=== PATIENT | male | born 1960 | race Caucasian/White ===

== ENCOUNTER 2019-01-09 16:12 | Inpatient (IN) | payer OTHER ==
[~2019-01-09] VITALS: Ht 177.8 cm; Wt 78.0 kg
[2019-01-09 16:41] VITALS: BP_SYST 112
[2019-01-09 17:38] LABS: WHITE BLOOD COUNT (AUTO) 6.1 K/uL (4.8-10.8)
[2019-01-09 17:43] LABS: HEMATOCRIT 34.8 % (36-54); HEMOGLOBIN 12.1 g/dL (14.0-18.0); MEAN CORPUSCULAR HEMOGLOBIN 34 pg (27-31); MEAN CORPUSCULAR HGB CONC 35 % (32-36); MEAN CORPUSCULAR VOLUME 98 fL (79.0-98.0); PLATELET COUNT (AUTO) 152 K/uL (130-430); RED BLOOD CELL COUNT(AUTO) 3.57 MIL/uL (4.2-6.2); RED CELL DISTRIBUTION WIDTH 15.7 % (9.0-15.0)
[2019-01-09 17:45] LABS: CALCIUM 7.8 mg/dL (8.4-11.0); CREATININE 1.29 mg/dL (0.55-1.30)
[2019-01-09 17:48] LABS: INR 1.1 (0.80-1.20); PROTHROMBIN TIME 11.3 SECS (9.5-12.5)
[2019-01-09 17:51] LABS: ALBUMIN 2.1 g/dL (3.4-4.8); TOTAL BILIRUBIN 14.4 mg/dL (0.0-1.0)
[2019-01-09 17:55] LABS: BAND % (MANUAL) 0 % (0-6); BASOPHILS % (MANUAL) 0 % (0-2); EOSINOPHILS % (MANUAL) 0 % (0-7); LYMPHOCYTES % (MANUAL) 12 % (20-46); MONOCYTES % (MANUAL) 6 % (0-11)
[2019-01-09 17:58] LABS: POTASSIUM 2.9 mmol/L (3.5-5.1)
[2019-01-09] MEDS ORDERED: POTASSIUM CHLORIDE 20 MEQ TAB.PRT.SR PO ONE (18:15)
[2019-01-09] MEDS ORDERED: ONDANSETRON HCL 4 MG/2 ML VIAL IVP ONE (18:15)
[2019-01-09 18:40] LABS: BILIRUBIN,URINE 3+ (NEGATIVE); BLOOD, URINE NEGATIVE (NEGATIVE); CLARITY/URINE SLIGHTLY CLOUDY (CLEAR); GLUCOSE,URINE TRACE (NEGATIVE); KETONES,URINE 1+ (NEGATIVE); LEUKOCYTE ESTERASE ,URINE TRACE (NEGATIVE); NITRITE, URINE POSITIVE (NEGATIVE); PH,URINE 6.5 (5.0-8.0); PROTEIN URINE 1+ (NEGATIVE)
[2019-01-09 18:41] LABS: COLOR,URINE BROWN (YELLOW)
[2019-01-09] MEDS ORDERED: FAMOTIDINE 20 MG TABLET PO ONE ×2 (18:45→19:15)
[2019-01-09] MEDS ORDERED: FOLIC ACID 1 MG, THIAMINE HCL 100 MG, MAGNESIUM SULFATE 1 GM, MVI 10 ML in NACL 0.9% 1,... IV ONE (18:45)
[2019-01-09] MEDS ORDERED: PREDNISONE 20 MG TABLET PO ONE ×2 (18:45→19:15)
[2019-01-09 19:04] LABS: BACTERIA,URINE None Seen /HPF (None Seen); RBC,URINE 0-3 /HPF (0-3); WBC,URINE 0-3 /HPF (0-3)
[2019-01-09 19:07] LABS: HYALINE CASTS, URINE 0-10 /LPF (None Seen)
[2019-01-09] MEDS ORDERED: DOXYCYCLINE HYCLATE 100 MG in D5W 100 ML IV ONE (19:15)
[2019-01-09 19:26] VITALS: BP_SYST 136
[2019-01-09] MEDS ORDERED: THIAMINE HCL 100 MG/ML VIAL ONE (20:35)
[2019-01-09] MEDS ORDERED: MVI 10 ML VIAL IV ONE (20:35)
[2019-01-09] MEDS ORDERED: MAGNESIUM SULFATE 1 GM/2 ML VIAL ONE (20:35)
[2019-01-09] MEDS ORDERED: FOLIC ACID 5 MG/ML VIAL IV ONE (20:35)
[2019-01-09] MEDS ORDERED: DOXYCYCLINE HYCLATE 100 MG VIAL IV ONE (20:39)
[2019-01-09] MEDS: PENTOXIFYLLINE 400 MG TABLET.SA (TRENtal) PO SCH (21:55)
[2019-01-09] MEDS: chlordiazePOXIDE HCL 25 MG CAPSULE PO SCH (21:55)
[2019-01-09] MEDS: cefTRIAXone 1 GM IVPB PREMIX 50 ML IV SCH (22:19)
[2019-01-09] MEDS ORDERED: cefTRIAXone 1 GM IVPB PREMIX 50 ML IV ONE (22:25)
[2019-01-10 00:47] VITALS: BP_SYST 130
[2019-01-10] MEDS: LORazepam 2 MG/ML VIAL IVP PRN ×4 (03:55→21:40)
[2019-01-10 06:21] LABS: INR 1.1 (0.80-1.20); PROTHROMBIN TIME 10.9 SECS (9.5-12.5)
[2019-01-10 06:31] LABS: CALCIUM 7.5 mg/dL (8.4-11.0); CREATININE 0.81 mg/dL (0.55-1.30); POTASSIUM 3.5 mmol/L (3.5-5.1); TOTAL BILIRUBIN 13.7 mg/dL (0.0-1.0)
[2019-01-10 06:34] LABS: HEMATOCRIT 32.9 % (36-54); HEMOGLOBIN 11.3 g/dL (14.0-18.0); MEAN CORPUSCULAR HEMOGLOBIN 33 pg (27-31); MEAN CORPUSCULAR HGB CONC 34 % (32-36); MEAN CORPUSCULAR VOLUME 97 fL (79.0-98.0); PLATELET COUNT (AUTO) 148 K/uL (130-430); RED BLOOD CELL COUNT(AUTO) 3.39 MIL/uL (4.2-6.2); WHITE BLOOD COUNT (AUTO) 3.2 K/uL (4.8-10.8)
[2019-01-10 08:00] VITALS: BP_SYST 138
[2019-01-10] MEDS: PREDNISONE 20 MG TABLET PO SCH ×2 (08:13→11:50)
[2019-01-10] MEDS: FAMOTIDINE 20 MG TABLET PO SCH ×2 (08:13→21:09)
[2019-01-10] MEDS: CHOLECALCIFEROL (VITAMIN D3) 2,000 UNIT TABLET PO SCH (08:13)
[2019-01-10] MEDS: chlordiazePOXIDE HCL 25 MG CAPSULE PO SCH ×3 (08:13→21:09)
[2019-01-10] MEDS: PENTOXIFYLLINE 400 MG TABLET.SA (TRENtal) PO SCH ×2 (08:13→11:50)
[2019-01-10] MEDS ORDERED: METOCLOPRAMIDE HCL 10 MG/2 ML VIAL IVP PRN (08:45)
[2019-01-10] MEDS ORDERED: THIAMINE HCL 100 MG TABLET PO SCH (09:00)
[2019-01-10] MEDS ORDERED: MULTIVITS,CA,MINERALS/IRON/FA 1 TABLET PO SCH (09:00)
[2019-01-10] MEDS ORDERED: NEPHROVITE, (FOLIC ACID/VITAMIN B COMP W-C 1 TAB) PO SCH (09:00)
[2019-01-10 09:10] LABS: BASOPHILS % (MANUAL) 0 % (0-2); EOSINOPHILS % (MANUAL) 0 % (0-7); LYMPHOCYTES % (MANUAL) 6 % (20-46); MONOCYTES % (MANUAL) 9 % (0-11)
[2019-01-10 12:26] VITALS: BP_SYST 106
[2019-01-10] MEDS ORDERED: COMMUNICATION ORDER XX ONE (16:30)
[2019-01-10 16:54] VITALS: BP_SYST 138
[2019-01-10] MEDS ORDERED: TEMAZEPAM 15 MG CAPSULE PO PRN (17:15)
[2019-01-10] MEDS ORDERED: METOPROLOL TARTRATE 25 MG TABLET PO ONE (17:15)
[2019-01-10 20:00] VITALS: BP_SYST 142
[2019-01-10] MEDS: TEMAZEPAM 15 MG CAPSULE PO SCH (21:00)
[2019-01-10] MEDS ORDERED: HALOPERIDOL LACTATE 5 MG/ML VIAL IM SCH (21:00)
[2019-01-10] MEDS: METOPROLOL TARTRATE 25 MG TABLET PO SCH (21:11)
[2019-01-10] MEDS: cefTRIAXone 1 GM IVPB PREMIX 50 ML IV SCH (21:54)
[2019-01-10] MEDS ORDERED: QUEtiapine FUMARATE 100 MG TABLET PO ONE (22:45)
[2019-01-10] MEDS ORDERED: LORazepam 2 MG/ML VIAL IVP ONE (22:45)
[2019-01-11] VITALS (13 sets, daily range): BP systolic 108–156
[2019-01-11 07:55] LABS: HEMATOCRIT 30.8 % (36-54); HEMOGLOBIN 10.6 g/dL (14.0-18.0); MEAN CORPUSCULAR HEMOGLOBIN 34 pg (27-31); MEAN CORPUSCULAR HGB CONC 35 % (32-36); MEAN CORPUSCULAR VOLUME 97 fL (79.0-98.0); PLATELET COUNT (AUTO) 138 K/uL (130-430); RED BLOOD CELL COUNT(AUTO) 3.17 MIL/uL (4.2-6.2); RED CELL DISTRIBUTION WIDTH 16.5 % (9.0-15.0); WHITE BLOOD COUNT (AUTO) 6.1 K/uL (4.8-10.8)
[2019-01-11] MEDS: LORazepam 2 MG/ML VIAL IVP PRN ×3 (08:16→23:11)
[2019-01-11] MEDS: METOPROLOL TARTRATE 25 MG TABLET PO SCH ×3 (08:19→20:36)
[2019-01-11] MEDS: chlordiazePOXIDE HCL 25 MG CAPSULE PO SCH ×4 (08:19→20:35)
[2019-01-11] MEDS: FAMOTIDINE 20 MG TABLET PO SCH ×3 (08:20→20:35)
[2019-01-11] MEDS: CHOLECALCIFEROL (VITAMIN D3) 2,000 UNIT TABLET PO SCH ×2 (08:20→09:10)
[2019-01-11 08:23] LABS: CALCIUM 8.1 mg/dL (8.4-11.0); CREATININE 0.9 mg/dL (0.55-1.30); POTASSIUM 3.3 mmol/L (3.5-5.1)
[2019-01-11 08:28] LABS: TOTAL BILIRUBIN 15.2 mg/dL (0.0-1.0)
[2019-01-11] MEDS ORDERED: POTASSIUM CHLORIDE 20 MEQ TAB.PRT.SR PO ONE ×2 (08:45→12:45)
[2019-01-11 08:47] LABS: BASOPHILS % (MANUAL) 0 % (0-2); EOSINOPHILS % (MANUAL) 1 % (0-7); LYMPHOCYTES % (MANUAL) 21 % (20-46); MONOCYTES % (MANUAL) 6 % (0-11)
[2019-01-11 09:27] LABS: HEPATITIS A AB, IgM Negative (Negative); HEPATITIS B CORE AB, IgM Negative (Negative); HEPATITIS B SURFACE AG Negative (Negative)
[2019-01-11] MEDS: THIAMINE HCL 100 MG, MAGNESIUM SULFATE 1 GM in NS 100 ML IV SCH (11:05)
[2019-01-11] MEDS: FOLIC ACID 1 MG, MVI 10 ML in NACL 0.9% 1,000 ML IV SCH (11:06)
[2019-01-11] MEDS ORDERED: FOLIC ACID 1 MG, THIAMINE HCL 100 MG, MAGNESIUM SULFATE 1 GM, MVI 10 ML in NACL 0.9% 1,... IV SCH (15:00)
[2019-01-11] MEDS ORDERED: PREDNISONE 20 MG TABLET PO ONE (15:30)
[2019-01-11] MEDS ORDERED: POTASSIUM CHLORIDE 20 MEQ/PKT PACKET PO ONE (16:00)
[2019-01-11] MEDS ORDERED: PENTOXIFYLLINE 400 MG TABLET.SA (TRENtal) PO SCH (18:00)
[2019-01-11] MEDS: QUEtiapine FUMARATE 100 MG TABLET PO SCH (18:23)
[2019-01-11] MEDS: TEMAZEPAM 15 MG CAPSULE PO SCH (20:35)
[2019-01-11] MEDS ORDERED: cefTRIAXone 1 GM IVPB PREMIX 50 ML IV ONE (22:13)
[2019-01-11] MEDS: cefTRIAXone 1 GM IVPB PREMIX 50 ML IV SCH (22:17)
[2019-01-12] VITALS (26 sets, daily range): BP systolic 29–148
[2019-01-12] MEDS: LORazepam 2 MG/ML VIAL IVP PRN (03:29)
[2019-01-12 06:13] LABS: HEMATOCRIT 31.9 % (36-54); HEMOGLOBIN 11.1 g/dL (14.0-18.0); MEAN CORPUSCULAR HEMOGLOBIN 34 pg (27-31); MEAN CORPUSCULAR HGB CONC 35 % (32-36); MEAN CORPUSCULAR VOLUME 98 fL (79.0-98.0); PLATELET COUNT (AUTO) 151 K/uL (130-430); RED BLOOD CELL COUNT(AUTO) 3.25 MIL/uL (4.2-6.2); RED CELL DISTRIBUTION WIDTH 16.4 % (9.0-15.0); WHITE BLOOD COUNT (AUTO) 7.8 K/uL (4.8-10.8)
[2019-01-12 07:12] LABS: ALBUMIN 1.9 g/dL (3.4-4.8); CALCIUM 7.8 mg/dL (8.4-11.0); CREATININE 0.8 mg/dL (0.55-1.30); PHOSPHORUS 3.3 mg/dL (2.7-4.5); POTASSIUM 4.4 mmol/L (3.5-5.1)
[2019-01-12 07:21] LABS: TOTAL BILIRUBIN 17.4 mg/dL (0.0-1.0)
[2019-01-12] MEDS: NACL 0.9% 1,000 ML IV SCH (07:45)
[2019-01-12] MEDS ORDERED: PREDNISONE 20 MG TABLET PO SCH (09:00)
[2019-01-12] MEDS: POTASSIUM CHLORIDE 20 MEQ/PKT PACKET PO SCH (09:07)
[2019-01-12] MEDS: METOPROLOL TARTRATE 25 MG TABLET PO SCH ×2 (09:09→21:39)
[2019-01-12] MEDS: chlordiazePOXIDE HCL 25 MG CAPSULE PO SCH ×4 (09:09→21:38)
[2019-01-12] MEDS: FAMOTIDINE 20 MG TABLET PO SCH ×2 (09:10→21:38)
[2019-01-12] MEDS: CHOLECALCIFEROL (VITAMIN D3) 2,000 UNIT TABLET PO SCH (09:16)
[2019-01-12 10:31] LABS: BASOPHILS % (MANUAL) 0 % (0-2); LYMPHOCYTES % (MANUAL) 7 % (20-46); MONOCYTES % (MANUAL) 8 % (0-11)
[2019-01-12 10:33] LABS: EOSINOPHILS % (MANUAL) 1 % (0-7)
[2019-01-12] MEDS: FOLIC ACID 1 MG, MVI 10 ML in NACL 0.9% 1,000 ML IV SCH (11:47)
[2019-01-12] MEDS: THIAMINE HCL 100 MG, MAGNESIUM SULFATE 1 GM in NS 100 ML IV SCH (11:47)
[2019-01-12] MEDS: QUEtiapine FUMARATE 100 MG TABLET PO SCH (17:11)
[2019-01-12] MEDS: TEMAZEPAM 15 MG CAPSULE PO SCH (21:38)
[2019-01-12] MEDS: cefTRIAXone 1 GM IVPB PREMIX 50 ML IV SCH (21:40)
[2019-01-13] VITALS (24 sets, daily range): BP systolic 99–149
[2019-01-13] MEDS: NACL 0.9% 1,000 ML IV SCH ×3 (02:59→22:32)
[2019-01-13] MEDS: LORazepam 2 MG/ML VIAL IVP PRN ×4 (03:18→19:18)
[2019-01-13 05:25] LABS: BASOPHILS # (AUTO) 0.1 K/uL (0.0-0.2); BASOPHILS % (AUTO) 1.1 % (0.0-2.0); EOSINOPHILS % (AUTO) 0.2 % (0.0-4.0); HEMATOCRIT 30.8 % (36-54); HEMOGLOBIN 10.6 g/dL (14.0-18.0); LYMPHOCYTES # (AUTO) 2.5 K/uL (1.0-5.5); LYMPHOCYTES % (AUTO) 40.6 % (20.5-51.5); MEAN CORPUSCULAR HEMOGLOBIN 34 pg (27-31); MEAN CORPUSCULAR HGB CONC 35 % (32-36); MEAN CORPUSCULAR VOLUME 99 fL (79.0-98.0); MONOCYTES # (AUTO) 0.9 K/uL (0.0-1.0); MONOCYTES % (AUTO) 13.6 % (1.7-9.3); NEUTROPHILS # (AUTO) 2.8 K/uL (1.8-7.7); NEUTROPHILS % (AUTO) 44.5 % (40.0-70.0); PLATELET COUNT (AUTO) 149 K/uL (130-430); RED BLOOD CELL COUNT(AUTO) 3.11 MIL/uL (4.2-6.2); RED CELL DISTRIBUTION WIDTH 17.2 % (9.0-15.0); WHITE BLOOD COUNT (AUTO) 6.3 K/uL (4.8-10.8)
[2019-01-13 05:40] LABS: PROTHROMBIN TIME 10.1 SECS (9.5-12.5)
[2019-01-13 05:43] LABS: ALBUMIN 1.8 g/dL (3.4-4.8); BILIRUBIN,DIRECT 14.2 mg/dL (0.0-0.3); CALCIUM 7.9 mg/dL (8.4-11.0); CREATININE 0.86 mg/dL (0.55-1.30); PHOSPHORUS 2.4 mg/dL (2.7-4.5); POTASSIUM 4.3 mmol/L (3.5-5.1)
[2019-01-13 05:44] LABS: TOTAL BILIRUBIN 16.1 mg/dL (0.0-1.0)
[2019-01-13] MEDS: chlordiazePOXIDE HCL 25 MG CAPSULE PO SCH ×4 (08:18→20:49)
[2019-01-13] MEDS: METOPROLOL TARTRATE 25 MG TABLET PO SCH ×2 (08:18→20:49)
[2019-01-13] MEDS: CHOLECALCIFEROL (VITAMIN D3) 2,000 UNIT TABLET PO SCH (08:18)
[2019-01-13] MEDS: POTASSIUM CHLORIDE 20 MEQ/PKT PACKET PO SCH (08:18)
[2019-01-13] MEDS: FAMOTIDINE 20 MG TABLET PO SCH ×2 (08:18→20:49)
[2019-01-13] MEDS ORDERED: LACTULOSE 20 GM/30 ML UDC PO SCH (09:00)
[2019-01-13] MEDS ORDERED: HALOPERIDOL LACTATE 5 MG/ML VIAL IM ONE (09:00)
[2019-01-13] MEDS: THIAMINE HCL 100 MG, MAGNESIUM SULFATE 1 GM in NS 100 ML IV SCH (11:03)
[2019-01-13] MEDS: FOLIC ACID 1 MG, MVI 10 ML in NACL 0.9% 1,000 ML IV SCH (12:21)
[2019-01-13] MEDS ORDERED: NA PHOS 15 MM in NS 250 ML IV ONE (12:45)
[2019-01-13] MEDS: HALOPERIDOL 1 MG TABLET (HALDOL) PO SCH ×2 (14:35→20:48)
[2019-01-13] MEDS: cefTRIAXone 1 GM IVPB PREMIX 50 ML IV SCH (20:47)
[2019-01-13] MEDS: TEMAZEPAM 15 MG CAPSULE PO SCH (20:48)
[2019-01-13] MEDS: HALOPERIDOL LACTATE 5 MG/ML VIAL IM PRN (23:11)
[2019-01-14] VITALS (11 sets, daily range): BP systolic 100–143
[2019-01-14 05:44] LABS: BASOPHILS # (AUTO) 0.1 K/uL (0.0-0.2); BASOPHILS % (AUTO) 1.5 % (0.0-2.0); EOSINOPHILS # (AUTO) 0.1 K/uL (0.0-0.4); EOSINOPHILS % (AUTO) 1.5 % (0.0-4.0); HEMATOCRIT 31.2 % (36-54); HEMOGLOBIN 10.6 g/dL (14.0-18.0); LYMPHOCYTES # (AUTO) 2.5 K/uL (1.0-5.5); LYMPHOCYTES % (AUTO) 37.2 % (20.5-51.5); MEAN CORPUSCULAR HEMOGLOBIN 34 pg (27-31); MEAN CORPUSCULAR HGB CONC 34 % (32-36); MEAN CORPUSCULAR VOLUME 100 fL (79.0-98.0); MONOCYTES % (AUTO) 14.5 % (1.7-9.3); NEUTROPHILS # (AUTO) 3.1 K/uL (1.8-7.7); NEUTROPHILS % (AUTO) 45.3 % (40.0-70.0); PLATELET COUNT (AUTO) 154 K/uL (130-430); RED BLOOD CELL COUNT(AUTO) 3.12 MIL/uL (4.2-6.2); RED CELL DISTRIBUTION WIDTH 17.6 % (9.0-15.0); WHITE BLOOD COUNT (AUTO) 6.7 K/uL (4.8-10.8)
[2019-01-14] MEDS: NACL 0.9% 1,000 ML IV SCH (06:03)
[2019-01-14] MEDS: LORazepam 2 MG/ML VIAL IVP PRN (06:04)
[2019-01-14 06:09] LABS: ALBUMIN 1.6 g/dL (3.4-4.8); CALCIUM 8.1 mg/dL (8.4-11.0); CREATININE 0.86 mg/dL (0.55-1.30); PHOSPHORUS 4.1 mg/dL (2.7-4.5); POTASSIUM 4.1 mmol/L (3.5-5.1)
[2019-01-14 06:19] LABS: TOTAL IRON BIND. CAPACITY 114 ug/dL (250-450)
[2019-01-14 06:28] LABS: TOTAL BILIRUBIN 15.5 mg/dL (0.0-1.0)
[2019-01-14] MEDS: POTASSIUM CHLORIDE 20 MEQ/PKT PACKET PO SCH (08:45)
[2019-01-14] MEDS: HALOPERIDOL 1 MG TABLET (HALDOL) PO SCH ×3 (08:46→21:35)
[2019-01-14] MEDS: CHOLECALCIFEROL (VITAMIN D3) 2,000 UNIT TABLET PO SCH (08:46)
[2019-01-14] MEDS: FAMOTIDINE 20 MG TABLET PO SCH ×2 (08:46→21:34)
[2019-01-14] MEDS: chlordiazePOXIDE HCL 25 MG CAPSULE PO SCH ×4 (08:46→21:35)
[2019-01-14] MEDS: METOPROLOL TARTRATE 25 MG TABLET PO SCH ×2 (08:47→21:34)
[2019-01-14] MEDS: THIAMINE HCL 100 MG, MAGNESIUM SULFATE 1 GM in NS 100 ML IV SCH (12:19)
[2019-01-14] MEDS: FOLIC ACID 1 MG, MVI 10 ML in NACL 0.9% 1,000 ML IV SCH (12:23)
[2019-01-14] MEDS: TEMAZEPAM 15 MG CAPSULE PO SCH (21:33)
[2019-01-14] MEDS: cefTRIAXone 1 GM IVPB PREMIX 50 ML IV SCH (23:51)
[2019-01-15] VITALS: BP_SYST 137
[2019-01-15] MEDS: NACL 0.9% 1,000 ML IV SCH ×4 (02:21→22:21)
[2019-01-15 08:18] VITALS: BP_SYST 134
[2019-01-15] MEDS: HALOPERIDOL 1 MG TABLET (HALDOL) PO SCH ×3 (08:37→20:47)
[2019-01-15] MEDS: METOPROLOL TARTRATE 25 MG TABLET PO SCH (08:39)
[2019-01-15] MEDS: POTASSIUM CHLORIDE 20 MEQ/PKT PACKET PO SCH (08:40)
[2019-01-15] MEDS: FAMOTIDINE 20 MG TABLET PO SCH ×2 (08:40→20:48)
[2019-01-15] MEDS: chlordiazePOXIDE HCL 25 MG CAPSULE PO SCH ×4 (08:40→20:48)
[2019-01-15] MEDS: CHOLECALCIFEROL (VITAMIN D3) 2,000 UNIT TABLET PO SCH (08:40)
[2019-01-15 09:02] LABS: HEMATOCRIT 32.6 % (36-54); HEMOGLOBIN 11.1 g/dL (14.0-18.0); MEAN CORPUSCULAR HEMOGLOBIN 34 pg (27-31); MEAN CORPUSCULAR HGB CONC 34 % (32-36); MEAN CORPUSCULAR VOLUME 101 fL (79.0-98.0); PLATELET COUNT (AUTO) 170 K/uL (130-430); RED BLOOD CELL COUNT(AUTO) 3.24 MIL/uL (4.2-6.2); RED CELL DISTRIBUTION WIDTH 17.5 % (9.0-15.0); WHITE BLOOD COUNT (AUTO) 6.3 K/uL (4.8-10.8)
[2019-01-15 09:30] LABS: ALBUMIN 1.8 g/dL (3.4-4.8); CALCIUM 8.1 mg/dL (8.4-11.0); CREATININE 0.7 mg/dL (0.55-1.30); POTASSIUM 3.8 mmol/L (3.5-5.1); TOTAL BILIRUBIN 13.7 mg/dL (0.0-1.0)
[2019-01-15 10:17] LABS: BASOPHILS % (MANUAL) 0 % (0-2); EOSINOPHILS % (MANUAL) 0 % (0-7); LYMPHOCYTES % (MANUAL) 13 % (20-46); MONOCYTES % (MANUAL) 8 % (0-11)
[2019-01-15] MEDS: THIAMINE HCL 100 MG, MAGNESIUM SULFATE 1 GM in NS 100 ML IV SCH (11:45)
[2019-01-15] MEDS: FOLIC ACID 1 MG, MVI 10 ML in NACL 0.9% 1,000 ML IV SCH (11:47)
[2019-01-15 13:16] VITALS: BP_SYST 132
[2019-01-15 17:35] VITALS: BP_SYST 112
[2019-01-15 19:00] VITALS: BP_SYST 130
[2019-01-15 20:00] VITALS: BP_SYST 130
[2019-01-15] MEDS: TEMAZEPAM 15 MG CAPSULE PO SCH (20:48)
[2019-01-15] MEDS: LORazepam 2 MG/ML VIAL IVP PRN (21:38)
[2019-01-16] VITALS (7 sets, daily range): BP systolic 111–157
[2019-01-16 05:50] LABS: HEMATOCRIT 28.9 % (36-54); HEMOGLOBIN 9.8 g/dL (14.0-18.0); MEAN CORPUSCULAR HEMOGLOBIN 34 pg (27-31); MEAN CORPUSCULAR HGB CONC 34 % (32-36); MEAN CORPUSCULAR VOLUME 101 fL (79.0-98.0); PLATELET COUNT (AUTO) 169 K/uL (130-430); RED BLOOD CELL COUNT(AUTO) 2.85 MIL/uL (4.2-6.2); RED CELL DISTRIBUTION WIDTH 18.1 % (9.0-15.0); WHITE BLOOD COUNT (AUTO) 6.4 K/uL (4.8-10.8)
[2019-01-16 07:18] LABS: ALBUMIN 1.7 g/dL (3.4-4.8); CALCIUM 8.3 mg/dL (8.4-11.0); CREATININE 0.74 mg/dL (0.55-1.30); POTASSIUM 3.8 mmol/L (3.5-5.1); TOTAL BILIRUBIN 13.2 mg/dL (0.0-1.0)
[2019-01-16 08:29] LABS: BASOPHILS % (MANUAL) 0 % (0-2); EOSINOPHILS % (MANUAL) 2 % (0-7); LYMPHOCYTES % (MANUAL) 17 % (20-46); MONOCYTES % (MANUAL) 7 % (0-11)
[2019-01-16] MEDS: POTASSIUM CHLORIDE 20 MEQ/PKT PACKET PO SCH (09:01)
[2019-01-16] MEDS: FAMOTIDINE 20 MG TABLET PO SCH ×2 (09:01→21:01)
[2019-01-16] MEDS: CHOLECALCIFEROL (VITAMIN D3) 2,000 UNIT TABLET PO SCH (09:01)
[2019-01-16] MEDS: chlordiazePOXIDE HCL 25 MG CAPSULE PO SCH ×4 (09:01→21:01)
[2019-01-16] MEDS: HALOPERIDOL 1 MG TABLET (HALDOL) PO SCH (09:01)
[2019-01-16] MEDS: THIAMINE HCL 100 MG, MAGNESIUM SULFATE 1 GM in NS 100 ML IV SCH (11:33)
[2019-01-16] MEDS: NACL 0.9% 1,000 ML IV SCH (11:34)
[2019-01-16] MEDS: FOLIC ACID 1 MG, MVI 10 ML in NACL 0.9% 1,000 ML IV SCH (11:38)
[2019-01-16] MEDS ORDERED: BISACODYL 5 MG TABLET.DR (DULCOLAX) PO PRN (12:30)
[2019-01-16] MEDS ORDERED: BISACODYL 5 MG TABLET.DR (DULCOLAX) PO ONE (12:30)
[2019-01-16] MEDS ORDERED: MILK OF MAGNESIA 30 ML UDC PO ONE (12:30)
[2019-01-16] MEDS: HALOPERIDOL 5 MG TABLET (HALDOL) PO SCH ×2 (14:30→21:01)
[2019-01-16] MEDS: AMPICILLIN SODIUM/SULBACTAM NA 3 GM in NS 100 ML IV SCH (18:30)
[2019-01-16] MEDS ORDERED: AMPICILLIN SODIUM/SULBACTAM NA 3 GM VIAL ONE (18:38)
[2019-01-16] MEDS: TEMAZEPAM 15 MG CAPSULE PO SCH (21:02)
[2019-01-17] MEDS ORDERED: AMPICILLIN SODIUM/SULBACTAM NA 3 GM VIAL ONE (00:02)
[2019-01-17] MEDS: AMPICILLIN SODIUM/SULBACTAM NA 3 GM in NS 100 ML IV SCH ×4 (00:13→18:01)
[2019-01-17 00:38] VITALS: BP_SYST 134
[2019-01-17] MEDS: LORazepam 2 MG/ML VIAL IVP PRN (01:18)
[2019-01-17 06:51] LABS: HEMATOCRIT 26.3 % (36-54); HEMOGLOBIN 9.3 g/dL (14.0-18.0); MEAN CORPUSCULAR HEMOGLOBIN 36 pg (27-31); MEAN CORPUSCULAR HGB CONC 35 % (32-36); MEAN CORPUSCULAR VOLUME 101 fL (79.0-98.0); PLATELET COUNT (AUTO) 181 K/uL (130-430); RED BLOOD CELL COUNT(AUTO) 2.59 MIL/uL (4.2-6.2); RED CELL DISTRIBUTION WIDTH 18.7 % (9.0-15.0); WHITE BLOOD COUNT (AUTO) 9.7 K/uL (4.8-10.8)
[2019-01-17 07:05] LABS: ALBUMIN 1.7 g/dL (3.4-4.8); CALCIUM 7.5 mg/dL (8.4-11.0); CREATININE 0.77 mg/dL (0.55-1.30); POTASSIUM 3.4 mmol/L (3.5-5.1); TOTAL BILIRUBIN 12.1 mg/dL (0.0-1.0)
[2019-01-17 07:40] LABS: BAND % (MANUAL) 4 % (0-6); BASOPHILS % (MANUAL) 0 % (0-2); EOSINOPHILS % (MANUAL) 0 % (0-7); LYMPHOCYTES % (MANUAL) 11 % (20-46); MONOCYTES % (MANUAL) 8 % (0-11)
[2019-01-17 08:00] VITALS: BP_SYST 131
[2019-01-17] MEDS ORDERED: POTASSIUM CHLORIDE 20 MEQ/PKT PACKET PO ONE (08:30)
[2019-01-17] MEDS: FAMOTIDINE 20 MG TABLET PO SCH ×2 (10:07→22:30)
[2019-01-17] MEDS: LORazepam 1 MG TABLET PO SCH ×3 (10:08→22:35)
[2019-01-17] MEDS: HALOPERIDOL 5 MG TABLET (HALDOL) PO SCH ×3 (10:10→22:30)
[2019-01-17 11:39] VITALS: BP_SYST 121
[2019-01-17] MEDS: FOLIC ACID 1 MG, MVI 10 ML in NACL 0.9% 1,000 ML IV SCH (13:00)
[2019-01-17] MEDS: THIAMINE HCL 100 MG, MAGNESIUM SULFATE 1 GM in NS 100 ML IV SCH (13:00)
[2019-01-17] MEDS ORDERED: POTASSIUM CHLORIDE 20 MEQ TAB.PRT.SR PO ONE (14:15)
[2019-01-17] MEDS: CHOLECALCIFEROL (VITAMIN D3) 2,000 UNIT TABLET PO SCH (14:58)
[2019-01-17] MEDS: POTASSIUM CHLORIDE 20 MEQ/PKT PACKET PO SCH (14:59)
[2019-01-17 16:00] VITALS: BP_SYST 112
[2019-01-17 20:00] VITALS: BP_SYST 112
[2019-01-17] MEDS: TEMAZEPAM 15 MG CAPSULE PO SCH (22:30)
[2019-01-18 02:57] VITALS: BP_SYST 138
[2019-01-18 06:33] LABS: HEMATOCRIT 25.1 % (36-54); HEMOGLOBIN 8.6 g/dL (14.0-18.0); MEAN CORPUSCULAR HEMOGLOBIN 35 pg (27-31); MEAN CORPUSCULAR HGB CONC 34 % (32-36); MEAN CORPUSCULAR VOLUME 103 fL (79.0-98.0); PLATELET COUNT (AUTO) 190 K/uL (130-430); RED BLOOD CELL COUNT(AUTO) 2.45 MIL/uL (4.2-6.2); RED CELL DISTRIBUTION WIDTH 19.1 % (9.0-15.0); WHITE BLOOD COUNT (AUTO) 7.3 K/uL (4.8-10.8)
[2019-01-18 06:57] LABS: ALBUMIN 1.6 g/dL (3.4-4.8); CALCIUM 7.9 mg/dL (8.4-11.0); CREATININE 0.75 mg/dL (0.55-1.30); POTASSIUM 3.7 mmol/L (3.5-5.1); TOTAL BILIRUBIN 11.8 mg/dL (0.0-1.0)
[2019-01-18] MEDS: LORazepam 1 MG TABLET PO SCH ×3 (07:16→23:56)
[2019-01-18] MEDS: AMPICILLIN SODIUM/SULBACTAM NA 3 GM in NS 100 ML IV SCH ×4 (07:17→12:45)
[2019-01-18 08:00] VITALS: BP_SYST 140
[2019-01-18 08:41] LABS: ATYPICAL LYMPHOCYTES % 0 % (0-0); BAND % (MANUAL) 4 % (0-6); LYMPHOCYTES % (MANUAL) 16 % (20-46)
[2019-01-18 08:42] LABS: BASOPHILS % (MANUAL) 0 % (0-2); EOSINOPHILS % (MANUAL) 3 % (0-7)
[2019-01-18 08:44] LABS: MONOCYTES % (MANUAL) 9 % (0-11)
[2019-01-18] MEDS: BENZTROPINE MESYLATE 1 MG TABLET PO SCH (09:57)
[2019-01-18] MEDS: CHOLECALCIFEROL (VITAMIN D3) 2,000 UNIT TABLET PO SCH (09:57)
[2019-01-18] MEDS: FAMOTIDINE 20 MG TABLET PO SCH (09:57)
[2019-01-18] MEDS: HALOPERIDOL 5 MG TABLET (HALDOL) PO SCH ×3 (09:58→20:59)
[2019-01-18] MEDS: IPRATROPIUM/ALBUTEROL SULFATE 3 ML AMPUL.NEB (DUONEB) INH SCH ×4 (11:17→23:00)
[2019-01-18 12:00] VITALS: BP_SYST 146
[2019-01-18] MEDS: POTASSIUM CHLORIDE 20 MEQ/PKT PACKET PO SCH (12:33)
[2019-01-18] MEDS: THIAMINE HCL 100 MG, MAGNESIUM SULFATE 1 GM in NS 100 ML IV SCH (12:41)
[2019-01-18] MEDS: FOLIC ACID 1 MG, MVI 10 ML in NACL 0.9% 1,000 ML IV SCH (12:42)
[2019-01-18] MEDS ORDERED: FAMOTIDINE PF 20 MG/2 ML VIAL IVP ONE (14:30)
[2019-01-18 16:00] VITALS: BP_SYST 125
[2019-01-18 20:00] VITALS: BP_SYST 144
[2019-01-18] MEDS: TEMAZEPAM 15 MG CAPSULE PO SCH (20:55)
[2019-01-18] MEDS: FAMOTIDINE PF 20 MG/2 ML VIAL IVP SCH (22:02)
[2019-01-19] VITALS: BP_SYST 131
[2019-01-19] MEDS: D5LR 1,000 ML IV SCH ×3 (01:18→21:11)
[2019-01-19] MEDS: IPRATROPIUM/ALBUTEROL SULFATE 3 ML AMPUL.NEB (DUONEB) INH SCH ×6 (03:00→23:24)
[2019-01-19] MEDS: LORazepam 2 MG/ML VIAL IVP PRN (03:36)
[2019-01-19] MEDS: LORazepam 1 MG TABLET PO SCH ×3 (06:04→23:05)
[2019-01-19 06:25] LABS: ALBUMIN 1.6 g/dL (3.4-4.8); CALCIUM 7.9 mg/dL (8.4-11.0); CREATININE 0.74 mg/dL (0.55-1.30); POTASSIUM 3.8 mmol/L (3.5-5.1); TOTAL BILIRUBIN 11.1 mg/dL (0.0-1.0)
[2019-01-19 07:35] VITALS: BP_SYST 133
[2019-01-19 08:06] LABS: HEMATOCRIT 26.3 % (36-54); MEAN CORPUSCULAR HEMOGLOBIN 36 pg (27-31); MEAN CORPUSCULAR HGB CONC 34 % (32-36); MEAN CORPUSCULAR VOLUME 104 fL (79.0-98.0); PLATELET COUNT (AUTO) 226 K/uL (130-430); RED BLOOD CELL COUNT(AUTO) 2.52 MIL/uL (4.2-6.2); RED CELL DISTRIBUTION WIDTH 19.5 % (9.0-15.0); WHITE BLOOD COUNT (AUTO) 6.5 K/uL (4.8-10.8)
[2019-01-19] MEDS: FAMOTIDINE PF 20 MG/2 ML VIAL IVP SCH ×2 (08:10→21:11)
[2019-01-19] MEDS: CHOLECALCIFEROL (VITAMIN D3) 2,000 UNIT TABLET PO SCH (08:11)
[2019-01-19] MEDS: POTASSIUM CHLORIDE 20 MEQ/PKT PACKET PO SCH (08:11)
[2019-01-19] MEDS: HALOPERIDOL 5 MG TABLET (HALDOL) PO SCH ×3 (08:11→21:11)
[2019-01-19] MEDS: BENZTROPINE MESYLATE 1 MG TABLET PO SCH (08:11)
[2019-01-19 10:46] LABS: ATYPICAL LYMPHOCYTES % 2 % (0-0); BAND % (MANUAL) 4 % (0-6); BASOPHILS % (MANUAL) 0 % (0-2); EOSINOPHILS % (MANUAL) 1 % (0-7); LYMPHOCYTES % (MANUAL) 17 % (20-46)
[2019-01-19 10:47] LABS: MONOCYTES % (MANUAL) 8 % (0-11)
[2019-01-19] MEDS: THIAMINE HCL 100 MG, MAGNESIUM SULFATE 1 GM in NS 100 ML IV SCH (12:03)
[2019-01-19] MEDS: FOLIC ACID 1 MG, MVI 10 ML in NACL 0.9% 1,000 ML IV SCH (12:04)
[2019-01-19 13:23] VITALS: BP_SYST 115
[2019-01-19 15:14] VITALS: BP_SYST 112
[2019-01-19 16:51] VITALS: BP_SYST 140
[2019-01-19 20:23] VITALS: BP_SYST 136
[2019-01-19] MEDS: TEMAZEPAM 15 MG CAPSULE PO SCH (21:11)
[2019-01-20 01:07] VITALS: BP_SYST 137
[2019-01-20] MEDS: IPRATROPIUM/ALBUTEROL SULFATE 3 ML AMPUL.NEB (DUONEB) INH SCH ×5 (04:08→23:45)
[2019-01-20] MEDS: LORazepam 1 MG TABLET PO SCH ×3 (06:27→22:29)
[2019-01-20 06:31] LABS: HEMATOCRIT 27.1 % (36-54); HEMOGLOBIN 9.5 g/dL (14.0-18.0); MEAN CORPUSCULAR HEMOGLOBIN 36 pg (27-31); MEAN CORPUSCULAR HGB CONC 35 % (32-36); MEAN CORPUSCULAR VOLUME 103 fL (79.0-98.0); PLATELET COUNT (AUTO) 268 K/uL (130-430); RED BLOOD CELL COUNT(AUTO) 2.64 MIL/uL (4.2-6.2); RED CELL DISTRIBUTION WIDTH 19.2 % (9.0-15.0); WHITE BLOOD COUNT (AUTO) 5.1 K/uL (4.8-10.8)
[2019-01-20 06:37] LABS: PROTHROMBIN TIME 9.9 SECS (9.5-12.5)
[2019-01-20 06:48] LABS: ALBUMIN 1.8 g/dL (3.4-4.8); CALCIUM 8.3 mg/dL (8.4-11.0); CREATININE 0.7 mg/dL (0.55-1.30); POTASSIUM 3.4 mmol/L (3.5-5.1); TOTAL BILIRUBIN 9.9 mg/dL (0.0-1.0)
[2019-01-20 08:00] VITALS: BP_SYST 121
[2019-01-20] MEDS: HALOPERIDOL 5 MG TABLET (HALDOL) PO SCH ×3 (09:00→22:28)
[2019-01-20] MEDS: POTASSIUM CHLORIDE 20 MEQ/PKT PACKET PO SCH (09:00)
[2019-01-20] MEDS: CHOLECALCIFEROL (VITAMIN D3) 2,000 UNIT TABLET PO SCH (09:00)
[2019-01-20] MEDS: BENZTROPINE MESYLATE 1 MG TABLET PO SCH (09:00)
[2019-01-20] MEDS: FAMOTIDINE PF 20 MG/2 ML VIAL IVP SCH ×2 (09:01→21:00)
[2019-01-20] MEDS ORDERED: POTASSIUM CHLORIDE 20 MEQ TAB.PRT.SR PO ONE (11:30)
[2019-01-20 12:35] VITALS: BP_SYST 133
[2019-01-20] MEDS: THIAMINE HCL 100 MG, MAGNESIUM SULFATE 1 GM in NS 100 ML IV SCH (13:35)
[2019-01-20] MEDS: FOLIC ACID 1 MG, MVI 10 ML in NACL 0.9% 1,000 ML IV SCH (13:37)
[2019-01-20 13:53] LABS: BAND % (MANUAL) 2 % (0-6); BASOPHILS % (MANUAL) 0 % (0-2); EOSINOPHILS % (MANUAL) 1 % (0-7); LYMPHOCYTES % (MANUAL) 21 % (20-46); MONOCYTES % (MANUAL) 9 % (0-11)
[2019-01-20 17:18] VITALS: BP_SYST 138
[2019-01-21] MEDS: HALOPERIDOL LACTATE 5 MG/ML VIAL IM PRN ×2 (00:22→23:36)
[2019-01-21] MEDS: D5LR 1,000 ML IV SCH (00:32)
[2019-01-21 00:39] VITALS: BP_SYST 138
[2019-01-21] MEDS: IPRATROPIUM/ALBUTEROL SULFATE 3 ML AMPUL.NEB (DUONEB) INH SCH ×5 (03:00→20:22)
[2019-01-21] MEDS: LORazepam 1 MG TABLET PO SCH ×3 (07:30→22:13)
[2019-01-21 07:45] VITALS: BP_SYST 139
[2019-01-21] MEDS ORDERED: HALOPERIDOL 5 MG TABLET (HALDOL) PO SCH (09:00)
[2019-01-21] MEDS: FAMOTIDINE PF 20 MG/2 ML VIAL IVP SCH ×2 (09:44→22:11)
[2019-01-21] MEDS: CHOLECALCIFEROL (VITAMIN D3) 2,000 UNIT TABLET PO SCH (09:45)
[2019-01-21] MEDS: POTASSIUM CHLORIDE 20 MEQ/PKT PACKET PO SCH (09:45)
[2019-01-21] MEDS: BENZTROPINE MESYLATE 1 MG TABLET PO SCH (09:46)
[2019-01-21 10:22] LABS: HEMATOCRIT 26.5 % (36-54); HEMOGLOBIN 9.4 g/dL (14.0-18.0); MEAN CORPUSCULAR HEMOGLOBIN 37 pg (27-31); MEAN CORPUSCULAR HGB CONC 35 % (32-36); MEAN CORPUSCULAR VOLUME 105 fL (79.0-98.0); PLATELET COUNT (AUTO) 293 K/uL (130-430); RED BLOOD CELL COUNT(AUTO) 2.53 MIL/uL (4.2-6.2); RED CELL DISTRIBUTION WIDTH 19.1 % (9.0-15.0); WHITE BLOOD COUNT (AUTO) 4.6 K/uL (4.8-10.8)
[2019-01-21 10:35] LABS: CREATININE 0.75 mg/dL (0.55-1.30); POTASSIUM 3.8 mmol/L (3.5-5.1)
[2019-01-21 10:40] LABS: ALBUMIN 1.7 g/dL (3.4-4.8); TOTAL BILIRUBIN 6.9 mg/dL (0.0-1.0)
[2019-01-21] MEDS: THIAMINE HCL 100 MG, MAGNESIUM SULFATE 1 GM in NS 100 ML IV SCH (11:20)
[2019-01-21 11:52] LABS: BAND % (MANUAL) 2 % (0-6); BASOPHILS % (MANUAL) 0 % (0-2); EOSINOPHILS % (MANUAL) 1 % (0-7); LYMPHOCYTES % (MANUAL) 27 % (20-46); MONOCYTES % (MANUAL) 8 % (0-11)
[2019-01-21 12:15] VITALS: BP_SYST 130
[2019-01-21] MEDS: FOLIC ACID 1 MG, MVI 10 ML in NACL 0.9% 1,000 ML IV SCH (12:39)
[2019-01-21 16:06] VITALS: BP_SYST 126
[2019-01-22 02:11] VITALS: BP_SYST 136
[2019-01-22] MEDS: IPRATROPIUM/ALBUTEROL SULFATE 3 ML AMPUL.NEB (DUONEB) INH SCH ×5 (02:37→20:34)
[2019-01-22 06:17] LABS: HEMATOCRIT 29.3 % (36-54); HEMOGLOBIN 10.1 g/dL (14.0-18.0); MEAN CORPUSCULAR HEMOGLOBIN 36 pg (27-31); MEAN CORPUSCULAR HGB CONC 35 % (32-36); MEAN CORPUSCULAR VOLUME 105 fL (79.0-98.0); PLATELET COUNT (AUTO) 352 K/uL (130-430); RED BLOOD CELL COUNT(AUTO) 2.79 MIL/uL (4.2-6.2)
[2019-01-22 06:52] LABS: ALBUMIN 2.1 g/dL (3.4-4.8); CALCIUM 8.5 mg/dL (8.4-11.0); CREATININE 0.82 mg/dL (0.55-1.30); POTASSIUM 3.6 mmol/L (3.5-5.1); TOTAL BILIRUBIN 7.4 mg/dL (0.0-1.0)
[2019-01-22] MEDS: LORazepam 1 MG TABLET PO SCH ×2 (07:00→15:50)
[2019-01-22 07:23] LABS: WHITE BLOOD COUNT (AUTO) 6.4 K/uL (4.8-10.8)
[2019-01-22] MEDS: FAMOTIDINE PF 20 MG/2 ML VIAL IVP SCH ×2 (09:12→21:27)
[2019-01-22] MEDS: POTASSIUM CHLORIDE 20 MEQ/PKT PACKET PO SCH (09:13)
[2019-01-22] MEDS: CHOLECALCIFEROL (VITAMIN D3) 2,000 UNIT TABLET PO SCH (09:13)
[2019-01-22] MEDS: BENZTROPINE MESYLATE 1 MG TABLET PO SCH (09:13)
[2019-01-22 09:17] VITALS: BP_SYST 142
[2019-01-22 10:36] LABS: ATYPICAL LYMPHOCYTES % 4 % (0-0); BAND % (MANUAL) 0 % (0-6); BASOPHILS % (MANUAL) 0 % (0-2); EOSINOPHILS % (MANUAL) 1 % (0-7); LYMPHOCYTES % (MANUAL) 9 % (20-46); MONOCYTES % (MANUAL) 12 % (0-11)
[2019-01-22] MEDS: THIAMINE HCL 100 MG, MAGNESIUM SULFATE 1 GM in NS 100 ML IV SCH (11:00)
[2019-01-22] MEDS: FOLIC ACID 1 MG, MVI 10 ML in NACL 0.9% 1,000 ML IV SCH (12:00)
[2019-01-22] MEDS: HALOPERIDOL LACTATE 5 MG/ML VIAL IM PRN (18:11)
[2019-01-23 01:41] VITALS: BP_SYST 152
[2019-01-23] MEDS: HALOPERIDOL LACTATE 5 MG/ML VIAL IM PRN ×3 (02:14→17:53)
[2019-01-23] MEDS: LORazepam 1 MG TABLET PO SCH ×6 (02:14→22:17)
[2019-01-23] MEDS: IPRATROPIUM/ALBUTEROL SULFATE 3 ML AMPUL.NEB (DUONEB) INH SCH ×7 (03:00→23:09)
[2019-01-23 08:00] VITALS: BP_SYST 159
[2019-01-23] MEDS: CHOLECALCIFEROL (VITAMIN D3) 2,000 UNIT TABLET PO SCH (08:21)
[2019-01-23] MEDS: BENZTROPINE MESYLATE 1 MG TABLET PO SCH (08:21)
[2019-01-23] MEDS: FAMOTIDINE PF 20 MG/2 ML VIAL IVP SCH ×2 (08:22→22:17)
[2019-01-23] MEDS: POTASSIUM CHLORIDE 20 MEQ/PKT PACKET PO SCH (08:22)
[2019-01-23] MEDS: THIAMINE HCL 100 MG, MAGNESIUM SULFATE 1 GM in NS 100 ML IV SCH (10:24)
[2019-01-23] MEDS: FOLIC ACID 1 MG, MVI 10 ML in NACL 0.9% 1,000 ML IV SCH (11:48)
[2019-01-23 12:54] VITALS: BP_SYST 135
[2019-01-23 20:00] VITALS: BP_SYST 142
[2019-01-23 23:13] VITALS: BP_SYST 154
[2019-01-24] MEDS: D5LR 1,000 ML IV SCH ×2 (00:12→22:18)
[2019-01-24] MEDS: LORazepam 1 MG TABLET PO SCH ×6 (02:23→21:53)
[2019-01-24] MEDS: IPRATROPIUM/ALBUTEROL SULFATE 3 ML AMPUL.NEB (DUONEB) INH SCH ×3 (03:00→11:00)
[2019-01-24 06:42] LABS: HEMATOCRIT 28.9 % (36-54); MEAN CORPUSCULAR HEMOGLOBIN 36 pg (27-31); MEAN CORPUSCULAR HGB CONC 35 % (32-36); MEAN CORPUSCULAR VOLUME 104 fL (79.0-98.0); PLATELET COUNT (AUTO) 369 K/uL (130-430); RED BLOOD CELL COUNT(AUTO) 2.77 MIL/uL (4.2-6.2); RED CELL DISTRIBUTION WIDTH 17.8 % (9.0-15.0); WHITE BLOOD COUNT (AUTO) 6.6 K/uL (4.8-10.8)
[2019-01-24 06:56] LABS: ALBUMIN 2.2 g/dL (3.4-4.8); CALCIUM 8.5 mg/dL (8.4-11.0); TOTAL BILIRUBIN 6.5 mg/dL (0.0-1.0)
[2019-01-24 08:00] VITALS: BP_SYST 130
[2019-01-24 08:01] LABS: CREATININE 0.7 mg/dL (0.55-1.30)
[2019-01-24 09:28] LABS: ATYPICAL LYMPHOCYTES % 4 % (0-0); BAND % (MANUAL) 1 % (0-6); BASOPHILS % (MANUAL) 0 % (0-2); EOSINOPHILS % (MANUAL) 1 % (0-7); LYMPHOCYTES % (MANUAL) 19 % (20-46); MONOCYTES % (MANUAL) 14 % (0-11)
[2019-01-24] MEDS: POTASSIUM CHLORIDE 20 MEQ/PKT PACKET PO SCH (09:41)
[2019-01-24] MEDS: BENZTROPINE MESYLATE 1 MG TABLET PO SCH (09:42)
[2019-01-24] MEDS: CHOLECALCIFEROL (VITAMIN D3) 2,000 UNIT TABLET PO SCH (09:42)
[2019-01-24] MEDS: HALOPERIDOL LACTATE 5 MG/ML VIAL IM PRN ×2 (09:42→16:34)
[2019-01-24] MEDS: FAMOTIDINE PF 20 MG/2 ML VIAL IVP SCH (09:43)
[2019-01-24 12:00] VITALS: BP_SYST 124
[2019-01-24] MEDS: THIAMINE HCL 100 MG, MAGNESIUM SULFATE 1 GM in NS 100 ML IV SCH (12:44)
[2019-01-24] MEDS: FOLIC ACID 1 MG, MVI 10 ML in NACL 0.9% 1,000 ML IV SCH (12:45)
[2019-01-24 16:30] VITALS: BP_SYST 142
[2019-01-24 16:57] VITALS: BP_SYST 124
[2019-01-24 20:00] VITALS: BP_SYST 155
[2019-01-24] MEDS: FAMOTIDINE 20 MG TABLET PO SCH (21:52)
[2019-01-25] MEDS: LORazepam 1 MG TABLET PO SCH ×6 (01:00→21:00)
[2019-01-25 04:00] VITALS: BP_SYST 154
[2019-01-25 06:49] LABS: HEMATOCRIT 29.8 % (36-54); HEMOGLOBIN 10.4 g/dL (14.0-18.0); MEAN CORPUSCULAR HEMOGLOBIN 37 pg (27-31); MEAN CORPUSCULAR HGB CONC 35 % (32-36); MEAN CORPUSCULAR VOLUME 105 fL (79.0-98.0); PLATELET COUNT (AUTO) 399 K/uL (130-430); RED BLOOD CELL COUNT(AUTO) 2.85 MIL/uL (4.2-6.2); RED CELL DISTRIBUTION WIDTH 17.4 % (9.0-15.0)
[2019-01-25 06:50] LABS: ALBUMIN 2.1 g/dL (3.4-4.8); CALCIUM 8.3 mg/dL (8.4-11.0); CREATININE 0.67 mg/dL (0.55-1.30); POTASSIUM 3.6 mmol/L (3.5-5.1); TOTAL BILIRUBIN 5.7 mg/dL (0.0-1.0)
[2019-01-25 07:39] LABS: WHITE BLOOD COUNT (AUTO) 6.6 K/uL (4.8-10.8)
[2019-01-25 08:00] VITALS: BP_SYST 165
[2019-01-25] MEDS: CHOLECALCIFEROL (VITAMIN D3) 2,000 UNIT TABLET PO SCH (08:21)
[2019-01-25] MEDS: BENZTROPINE MESYLATE 1 MG TABLET PO SCH (08:21)
[2019-01-25] MEDS: FAMOTIDINE 20 MG TABLET PO SCH ×2 (08:21→22:00)
[2019-01-25] MEDS: POTASSIUM CHLORIDE 20 MEQ/PKT PACKET PO SCH (08:22)
[2019-01-25] MEDS: QUEtiapine FUMARATE 25 MG TABLET PO SCH ×3 (08:22→22:00)
[2019-01-25 10:54] LABS: ATYPICAL LYMPHOCYTES % 3 % (0-0); BAND % (MANUAL) 0 % (0-6); BASOPHILS % (MANUAL) 0 % (0-2); EOSINOPHILS % (MANUAL) 1 % (0-7); LYMPHOCYTES % (MANUAL) 16 % (20-46); MONOCYTES % (MANUAL) 30 % (0-11)
[2019-01-25] MEDS: FOLIC ACID 1 MG, MVI 10 ML in NACL 0.9% 1,000 ML IV SCH (11:17)
[2019-01-25] MEDS: THIAMINE HCL 100 MG, MAGNESIUM SULFATE 1 GM in NS 100 ML IV SCH (11:18)
[2019-01-25 12:00] VITALS: BP_SYST 118
[2019-01-25 16:00] VITALS: BP_SYST 138
[2019-01-25 22:03] VITALS: BP_SYST 138
[2019-01-25] MEDS: D5LR 1,000 ML IV SCH (22:59)
[2019-01-26] MEDS: LORazepam 1 MG TABLET PO SCH ×5 (01:00→21:50)
[2019-01-26 02:12] VITALS: BP_SYST 126
[2019-01-26 05:58] LABS: HEMATOCRIT 29.1 % (36-54); MEAN CORPUSCULAR HEMOGLOBIN 36 pg (27-31); MEAN CORPUSCULAR HGB CONC 35 % (32-36); MEAN CORPUSCULAR VOLUME 106 fL (79.0-98.0); PLATELET COUNT (AUTO) 345 K/uL (130-430); RED BLOOD CELL COUNT(AUTO) 2.75 MIL/uL (4.2-6.2); WHITE BLOOD COUNT (AUTO) 6.1 K/uL (4.8-10.8)
[2019-01-26 06:14] LABS: ALBUMIN 1.9 g/dL (3.4-4.8); CALCIUM 8.4 mg/dL (8.4-11.0); CREATININE 0.76 mg/dL (0.55-1.30); POTASSIUM 3.6 mmol/L (3.5-5.1); TOTAL BILIRUBIN 4.1 mg/dL (0.0-1.0)
[2019-01-26 07:40] VITALS: BP_SYST 135
[2019-01-26 09:43] LABS: ATYPICAL LYMPHOCYTES % 0 % (0-0); BAND % (MANUAL) 0 % (0-6); BASOPHILS % (MANUAL) 0 % (0-2); EOSINOPHILS % (MANUAL) 0 % (0-7); LYMPHOCYTES % (MANUAL) 15 % (20-46); MONOCYTES % (MANUAL) 22 % (0-11)
[2019-01-26] MEDS: POTASSIUM CHLORIDE 20 MEQ/PKT PACKET PO SCH (10:57)
[2019-01-26] MEDS: QUEtiapine FUMARATE 25 MG TABLET PO SCH ×3 (10:57→21:53)
[2019-01-26] MEDS: BENZTROPINE MESYLATE 1 MG TABLET PO SCH (10:58)
[2019-01-26] MEDS: FAMOTIDINE 20 MG TABLET PO SCH ×2 (10:58→21:52)
[2019-01-26] MEDS: CHOLECALCIFEROL (VITAMIN D3) 2,000 UNIT TABLET PO SCH (10:58)
[2019-01-26] MEDS: D5LR 1,000 ML IV SCH (11:01)
[2019-01-26 11:40] VITALS: BP_SYST 125
[2019-01-26] MEDS: THIAMINE HCL 100 MG, MAGNESIUM SULFATE 1 GM in NS 100 ML IV SCH (11:42)
[2019-01-26] MEDS: FOLIC ACID 1 MG, MVI 10 ML in NACL 0.9% 1,000 ML IV SCH (11:42)
[2019-01-26 12:30] VITALS: BP_SYST 110
[2019-01-26 17:26] VITALS: BP_SYST 145
[2019-01-26 20:00] VITALS: BP_SYST 133
[2019-01-27 01:25] VITALS: BP_SYST 151
[2019-01-27 04:00] VITALS: BP_SYST 145
[2019-01-27 06:11] LABS: ALBUMIN 2.2 g/dL (3.4-4.8); CALCIUM 8.5 mg/dL (8.4-11.0); CREATININE 0.73 mg/dL (0.55-1.30); POTASSIUM 3.5 mmol/L (3.5-5.1); TOTAL BILIRUBIN 4.9 mg/dL (0.0-1.0)
[2019-01-27] MEDS: LORazepam 1 MG TABLET PO SCH ×3 (06:29→21:00)
[2019-01-27] MEDS: FAMOTIDINE 20 MG TABLET PO SCH ×2 (07:00→08:25)
[2019-01-27 07:15] LABS: HEMATOCRIT 30.4 % (36-54); HEMOGLOBIN 10.6 g/dL (14.0-18.0); MEAN CORPUSCULAR HEMOGLOBIN 37 pg (27-31); MEAN CORPUSCULAR HGB CONC 35 % (32-36); MEAN CORPUSCULAR VOLUME 105 fL (79.0-98.0); PLATELET COUNT (AUTO) 355 K/uL (130-430); RED BLOOD CELL COUNT(AUTO) 2.89 MIL/uL (4.2-6.2); RED CELL DISTRIBUTION WIDTH 16.7 % (9.0-15.0); WHITE BLOOD COUNT (AUTO) 5.7 K/uL (4.8-10.8)
[2019-01-27 08:00] VITALS: BP_SYST 136
[2019-01-27] MEDS: QUEtiapine FUMARATE 25 MG TABLET PO SCH ×2 (08:25→14:33)
[2019-01-27] MEDS: CHOLECALCIFEROL (VITAMIN D3) 2,000 UNIT TABLET PO SCH (08:25)
[2019-01-27] MEDS: POTASSIUM CHLORIDE 20 MEQ/PKT PACKET PO SCH (08:25)
[2019-01-27 08:53] LABS: BAND % (MANUAL) 2 % (0-6); BASOPHILS % (MANUAL) 0 % (0-2); EOSINOPHILS % (MANUAL) 2 % (0-7); LYMPHOCYTES % (MANUAL) 18 % (20-46); MONOCYTES % (MANUAL) 12 % (0-11)
[2019-01-27] MEDS: THIAMINE HCL 100 MG, MAGNESIUM SULFATE 1 GM in NS 100 ML IV SCH (11:27)
[2019-01-27] MEDS: FOLIC ACID 1 MG, MVI 10 ML in NACL 0.9% 1,000 ML IV SCH (12:17)
[2019-01-27 13:17] VITALS: BP_SYST 120
[2019-01-27 17:22] VITALS: BP_SYST 133
[2019-01-27] MEDS ORDERED: QUEtiapine FUMARATE 100 MG TABLET PO SCH (21:00)
[2019-01-28 01:41] VITALS: BP_SYST 151
[2019-01-28 02:28] VITALS: BP_SYST 158
[2019-01-28] MEDS: LORazepam 1 MG TABLET PO SCH ×3 (07:00→22:20)
[2019-01-28] MEDS: POTASSIUM CHLORIDE 20 MEQ/PKT PACKET PO SCH (09:06)
[2019-01-28] MEDS: CHOLECALCIFEROL (VITAMIN D3) 2,000 UNIT TABLET PO SCH (09:07)
[2019-01-28] MEDS: QUEtiapine FUMARATE 25 MG TABLET PO SCH ×3 (09:07→22:21)
[2019-01-28] MEDS: FAMOTIDINE 20 MG TABLET PO SCH ×2 (09:07→22:20)
[2019-01-28] MEDS: THIAMINE HCL 100 MG, MAGNESIUM SULFATE 1 GM in NS 100 ML IV SCH (11:00)
[2019-01-28 12:00] VITALS: BP_SYST 107
[2019-01-28] MEDS: FOLIC ACID 1 MG, MVI 10 ML in NACL 0.9% 1,000 ML IV SCH (12:00)
[2019-01-28 16:56] VITALS: BP_SYST 126
[2019-01-28] MEDS: QUEtiapine FUMARATE 100 MG TABLET PO SCH (22:21)
[2019-01-28] MEDS: HALOPERIDOL LACTATE 5 MG/ML VIAL IM PRN (22:24)
[2019-01-29 06:29] VITALS: BP_SYST 130
[2019-01-29] MEDS: LORazepam 1 MG TABLET PO SCH ×3 (06:54→22:39)
[2019-01-29 08:08] LABS: ALBUMIN 2.3 g/dL (3.4-4.8); CALCIUM 8.5 mg/dL (8.4-11.0); CREATININE 0.72 mg/dL (0.55-1.30); POTASSIUM 3.8 mmol/L (3.5-5.1); TOTAL BILIRUBIN 4.1 mg/dL (0.0-1.0)
[2019-01-29] MEDS: POTASSIUM CHLORIDE 20 MEQ/PKT PACKET PO SCH (09:48)
[2019-01-29] MEDS: FAMOTIDINE 20 MG TABLET PO SCH ×2 (09:49→21:00)
[2019-01-29] MEDS: QUEtiapine FUMARATE 25 MG TABLET PO SCH ×3 (09:49→22:30)
[2019-01-29] MEDS: CHOLECALCIFEROL (VITAMIN D3) 2,000 UNIT TABLET PO SCH (09:50)
[2019-01-29] MEDS: THIAMINE HCL 100 MG, MAGNESIUM SULFATE 1 GM in NS 100 ML IV SCH (11:51)
[2019-01-29 12:14] VITALS: BP_SYST 131
[2019-01-29] MEDS: FOLIC ACID 1 MG, MVI 10 ML in NACL 0.9% 1,000 ML IV SCH (12:38)
[2019-01-29 16:00] VITALS: BP_SYST 133
[2019-01-29 20:16] VITALS: BP_SYST 117
[2019-01-29] MEDS: QUEtiapine FUMARATE 100 MG TABLET PO SCH (22:40)
[2019-01-30 00:01] VITALS: BP_SYST 138
[2019-01-30] MEDS: LORazepam 1 MG TABLET PO SCH ×3 (06:40→21:13)
[2019-01-30] MEDS: HALOPERIDOL LACTATE 5 MG/ML VIAL IM PRN ×2 (07:56→15:48)
[2019-01-30] MEDS: QUEtiapine FUMARATE 25 MG TABLET PO SCH ×2 (07:59→14:16)
[2019-01-30] MEDS: POTASSIUM CHLORIDE 20 MEQ/PKT PACKET PO SCH (07:59)
[2019-01-30 08:00] VITALS: BP_SYST 135
[2019-01-30] MEDS: FAMOTIDINE 20 MG TABLET PO SCH ×2 (08:00→21:13)
[2019-01-30] MEDS: CHOLECALCIFEROL (VITAMIN D3) 2,000 UNIT TABLET PO SCH (08:00)
[2019-01-30] MEDS: THIAMINE HCL 100 MG, MAGNESIUM SULFATE 1 GM in NS 100 ML IV SCH (11:04)
[2019-01-30] MEDS: FOLIC ACID 1 MG, MVI 10 ML in NACL 0.9% 1,000 ML IV SCH (12:21)
[2019-01-30 12:52] VITALS: BP_SYST 136
[2019-01-30 16:00] VITALS: BP_SYST 149
[2019-01-30] MEDS ORDERED: LORazepam 2 MG/ML VIAL IVP SCH (18:15)
[2019-01-30 20:00] VITALS: BP_SYST 140
[2019-01-30] MEDS ORDERED: QUEtiapine FUMARATE 100 MG TABLET PO SCH (21:00)
[2019-01-30 23:30] VITALS: BP_SYST 150
[2019-01-31] VITALS: BP_SYST 142
[2019-01-31 04:00] VITALS: BP_SYST 135
[2019-01-31] MEDS: LORazepam 1 MG TABLET PO SCH ×3 (06:21→21:55)
[2019-01-31 08:00] VITALS: BP_SYST 151
[2019-01-31] MEDS ORDERED: QUEtiapine FUMARATE 25 MG TABLET PO SCH (09:00)
[2019-01-31] MEDS: CHOLECALCIFEROL (VITAMIN D3) 2,000 UNIT TABLET PO SCH (09:06)
[2019-01-31] MEDS: FAMOTIDINE 20 MG TABLET PO SCH ×2 (09:06→21:55)
[2019-01-31] MEDS: POTASSIUM CHLORIDE 20 MEQ/PKT PACKET PO SCH (09:06)
[2019-01-31] MEDS: QUEtiapine FUMARATE 25 MG TABLET PO SCH ×2 (09:07→16:37)
[2019-01-31] MEDS: FOLIC ACID 1 MG, MVI 10 ML in NACL 0.9% 1,000 ML IV SCH (12:07)
[2019-01-31] MEDS: THIAMINE HCL 100 MG, MAGNESIUM SULFATE 1 GM in NS 100 ML IV SCH (12:08)
[2019-01-31 16:05] VITALS: BP_SYST 145
[2019-01-31 20:00] VITALS: BP_SYST 122
[2019-01-31] MEDS: QUEtiapine FUMARATE 100 MG TABLET PO SCH (21:54)
[2019-02-01 00:30] VITALS: BP_SYST 128
[2019-02-01 04:10] VITALS: BP_SYST 126
[2019-02-01] MEDS: LORazepam 1 MG TABLET PO SCH ×3 (04:19→21:55)
[2019-02-01 08:00] VITALS: BP_SYST 154
[2019-02-01] MEDS ORDERED: NEPH PO ×2 (10:17→10:35)
[2019-02-01] MEDS ORDERED: Thiamine Hcl PO (10:17)
[2019-02-01] MEDS ORDERED: VITD2000 PO (10:17)
[2019-02-01] MEDS ORDERED: MULT-33 PO (10:17)
[2019-02-01] MEDS ORDERED: SER25 PO (10:17)
[2019-02-01] MEDS ORDERED: LORA-259 PO (10:17)
[2019-02-01] MEDS: THIAMINE HCL 100 MG, MAGNESIUM SULFATE 1 GM in NS 100 ML IV SCH (10:24)
[2019-02-01] MEDS: POTASSIUM CHLORIDE 20 MEQ/PKT PACKET PO SCH (10:25)
[2019-02-01] MEDS: FAMOTIDINE 20 MG TABLET PO SCH ×2 (10:25→21:56)
[2019-02-01] MEDS: QUEtiapine FUMARATE 25 MG TABLET PO SCH ×2 (10:25→15:28)
[2019-02-01] MEDS: CHOLECALCIFEROL (VITAMIN D3) 2,000 UNIT TABLET PO SCH (10:25)
[2019-02-01] MEDS ORDERED: THIA100T73 PO (10:35)
[2019-02-01] MEDS: FOLIC ACID 1 MG, MVI 10 ML in NACL 0.9% 1,000 ML IV SCH (12:16)
[2019-02-01 12:52] VITALS: BP_SYST 122
[2019-02-01 16:55] VITALS: BP_SYST 129
[2019-02-01 20:36] VITALS: BP_SYST 142
[2019-02-01] MEDS: QUEtiapine FUMARATE 100 MG TABLET PO SCH (21:58)
[2019-02-02] VITALS (9 sets, daily range): BP systolic 126–155
[2019-02-02] MEDS: LORazepam 1 MG TABLET PO SCH ×3 (05:00→21:01)
[2019-02-02] MEDS: CHOLECALCIFEROL (VITAMIN D3) 2,000 UNIT TABLET PO SCH (08:48)
[2019-02-02] MEDS: FAMOTIDINE 20 MG TABLET PO SCH ×2 (08:49→21:01)
[2019-02-02] MEDS: QUEtiapine FUMARATE 25 MG TABLET PO SCH ×3 (08:49→17:40)
[2019-02-02] MEDS: POTASSIUM CHLORIDE 20 MEQ/PKT PACKET PO SCH (08:51)
[2019-02-02] MEDS: THIAMINE HCL 100 MG, MAGNESIUM SULFATE 1 GM in NS 100 ML IV SCH (11:22)
[2019-02-02] MEDS: FOLIC ACID 1 MG, MVI 10 ML in NACL 0.9% 1,000 ML IV SCH (11:23)
[2019-02-02] MEDS: QUEtiapine FUMARATE 100 MG TABLET PO SCH (21:01)
[2019-02-03] VITALS: BP_SYST 150
[2019-02-03] MEDS: LORazepam 1 MG TABLET PO SCH ×3 (05:11→21:39)
[2019-02-03 06:44] LABS: BASOPHILS # (AUTO) 0.2 K/uL (0.0-0.2); BASOPHILS % (AUTO) 2.7 % (0.0-2.0); EOSINOPHILS # (AUTO) 0.1 K/uL (0.0-0.4); EOSINOPHILS % (AUTO) 2.2 % (0.0-4.0); HEMATOCRIT 30.7 % (36-54); HEMOGLOBIN 10.9 g/dL (14.0-18.0); LYMPHOCYTES # (AUTO) 1.4 K/uL (1.0-5.5); LYMPHOCYTES % (AUTO) 24.5 % (20.5-51.5); MEAN CORPUSCULAR HEMOGLOBIN 36 pg (27-31); MEAN CORPUSCULAR HGB CONC 36 % (32-36); MEAN CORPUSCULAR VOLUME 103 fL (79.0-98.0); MONOCYTES # (AUTO) 0.5 K/uL (0.0-1.0); MONOCYTES % (AUTO) 9.4 % (1.7-9.3); NEUTROPHILS # (AUTO) 3.4 K/uL (1.8-7.7); NEUTROPHILS % (AUTO) 61.2 % (40.0-70.0); PLATELET COUNT (AUTO) 320 K/uL (130-430); RED BLOOD CELL COUNT(AUTO) 2.99 MIL/uL (4.2-6.2); WHITE BLOOD COUNT (AUTO) 5.5 K/uL (4.8-10.8)
[2019-02-03 07:35] LABS: ALBUMIN 2.4 g/dL (3.4-4.8); CALCIUM 8.5 mg/dL (8.4-11.0); CREATININE 0.73 mg/dL (0.55-1.30); POTASSIUM 3.5 mmol/L (3.5-5.1); TOTAL BILIRUBIN 2.6 mg/dL (0.0-1.0)
[2019-02-03 08:00] VITALS: BP_SYST 145
[2019-02-03] MEDS: FAMOTIDINE 20 MG TABLET PO SCH ×2 (08:17→21:39)
[2019-02-03] MEDS: POTASSIUM CHLORIDE 20 MEQ/PKT PACKET PO SCH (08:18)
[2019-02-03] MEDS: CHOLECALCIFEROL (VITAMIN D3) 2,000 UNIT TABLET PO SCH (08:18)
[2019-02-03] MEDS: HALOPERIDOL LACTATE 5 MG/ML VIAL IM PRN ×2 (08:51→14:36)
[2019-02-03] MEDS: QUEtiapine FUMARATE 25 MG TABLET PO SCH ×3 (08:51→17:10)
[2019-02-03] MEDS ORDERED: THIAMINE HCL 100 MG TABLET PO ONE (09:00)
[2019-02-03 12:00] VITALS: BP_SYST 146
[2019-02-03 16:00] VITALS: BP_SYST 137
[2019-02-03 20:00] VITALS: BP_SYST 147
[2019-02-03] MEDS: QUEtiapine FUMARATE 100 MG TABLET PO SCH (21:40)
[2019-02-04] MEDS: HALOPERIDOL LACTATE 5 MG/ML VIAL IM PRN ×2 (00:44→21:18)
[2019-02-04 02:39] VITALS: BP_SYST 137
[2019-02-04] MEDS: LORazepam 1 MG TABLET PO SCH ×2 (05:12→21:20)
[2019-02-04 07:12] VITALS: BP_SYST 145
[2019-02-04] MEDS: CHOLECALCIFEROL (VITAMIN D3) 2,000 UNIT TABLET PO SCH (08:19)
[2019-02-04] MEDS: POTASSIUM CHLORIDE 20 MEQ/PKT PACKET PO SCH (08:19)
[2019-02-04] MEDS: QUEtiapine FUMARATE 25 MG TABLET PO SCH ×3 (08:19→17:36)
[2019-02-04] MEDS: FAMOTIDINE 20 MG TABLET PO SCH ×2 (08:19→22:07)
[2019-02-04] MEDS ORDERED: THIAMINE HCL 100 MG TABLET PO SCH (09:00)
[2019-02-04 12:49] VITALS: BP_SYST 126
[2019-02-04 16:52] VITALS: BP_SYST 137
[2019-02-04] MEDS: QUEtiapine FUMARATE 100 MG TABLET PO SCH (22:06)
[2019-02-05 03:47] VITALS: BP_SYST 133
[2019-02-05 04:00] VITALS: BP_SYST 154
[2019-02-05] MEDS: FAMOTIDINE 20 MG TABLET PO SCH ×2 (08:56→21:15)
[2019-02-05] MEDS: CHOLECALCIFEROL (VITAMIN D3) 2,000 UNIT TABLET PO SCH (08:56)
[2019-02-05] MEDS: POTASSIUM CHLORIDE 20 MEQ/PKT PACKET PO SCH (08:57)
[2019-02-05 10:30] VITALS: BP_SYST 142
[2019-02-05] MEDS: QUEtiapine FUMARATE 25 MG TABLET PO SCH ×3 (10:41→17:56)
[2019-02-05 12:48] VITALS: BP_SYST 112
[2019-02-05] MEDS ORDERED: THIAMINE HCL 100 MG in NS 50 ML IV ONE (15:00)
[2019-02-05 16:57] VITALS: BP_SYST 122
[2019-02-05 20:00] VITALS: BP_SYST 141
[2019-02-05] MEDS: QUEtiapine FUMARATE 100 MG TABLET PO SCH (21:15)
[2019-02-06 06:39] VITALS: BP_SYST 140
[2019-02-06 08:00] VITALS: BP_SYST 122
[2019-02-06] MEDS: QUEtiapine FUMARATE 25 MG TABLET PO SCH ×3 (08:17→16:18)
[2019-02-06] MEDS: THIAMINE HCL 100 MG TABLET PO SCH (08:17)
[2019-02-06] MEDS: FAMOTIDINE 20 MG TABLET PO SCH ×2 (08:17→22:51)
[2019-02-06] MEDS: POTASSIUM CHLORIDE 20 MEQ/PKT PACKET PO SCH (08:17)
[2019-02-06] MEDS: CHOLECALCIFEROL (VITAMIN D3) 2,000 UNIT TABLET PO SCH (08:18)
[2019-02-06] MEDS: HALOPERIDOL LACTATE 5 MG/ML VIAL IM PRN ×3 (08:18→23:29)
[2019-02-06 13:12] VITALS: BP_SYST 142
[2019-02-06 17:09] VITALS: BP_SYST 148
[2019-02-06] MEDS ORDERED: chlordiazePOXIDE HCL 25 MG CAPSULE PO ONE (17:45)
[2019-02-06] MEDS ORDERED: chlordiazePOXIDE HCL 25 MG CAPSULE ONE ×2 (18:52→23:34)
[2019-02-06 20:00] VITALS: BP_SYST 145
[2019-02-06] MEDS: chlordiazePOXIDE HCL 25 MG CAPSULE PO SCH (21:00)
[2019-02-06] MEDS: QUEtiapine FUMARATE 100 MG TABLET PO SCH (22:53)
[2019-02-07 00:01] VITALS: BP_SYST 122
[2019-02-07 06:32] LABS: BASOPHILS # (AUTO) 0.1 K/uL (0.0-0.2); BASOPHILS % (AUTO) 2.1 % (0.0-2.0); EOSINOPHILS # (AUTO) 0.2 K/uL (0.0-0.4); EOSINOPHILS % (AUTO) 3.7 % (0.0-4.0); HEMATOCRIT 31.4 % (36-54); HEMOGLOBIN 10.9 g/dL (14.0-18.0); LYMPHOCYTES # (AUTO) 1.5 K/uL (1.0-5.5); LYMPHOCYTES % (AUTO) 32.3 % (20.5-51.5); MEAN CORPUSCULAR HEMOGLOBIN 36 pg (27-31); MEAN CORPUSCULAR HGB CONC 35 % (32-36); MEAN CORPUSCULAR VOLUME 102 fL (79.0-98.0); MONOCYTES # (AUTO) 0.6 K/uL (0.0-1.0); MONOCYTES % (AUTO) 11.8 % (1.7-9.3); NEUTROPHILS # (AUTO) 2.4 K/uL (1.8-7.7); NEUTROPHILS % (AUTO) 50.1 % (40.0-70.0); PLATELET COUNT (AUTO) 339 K/uL (130-430); RED BLOOD CELL COUNT(AUTO) 3.08 MIL/uL (4.2-6.2); WHITE BLOOD COUNT (AUTO) 4.7 K/uL (4.8-10.8)
[2019-02-07 06:35] LABS: ALBUMIN 2.6 g/dL (3.4-4.8); CALCIUM 9.2 mg/dL (8.4-11.0); CREATININE 0.9 mg/dL (0.55-1.30); POTASSIUM 3.9 mmol/L (3.5-5.1); TOTAL BILIRUBIN 2.1 mg/dL (0.0-1.0)
[2019-02-07 07:30] VITALS: BP_SYST 140
[2019-02-07] MEDS: POTASSIUM CHLORIDE 20 MEQ/PKT PACKET PO SCH (08:21)
[2019-02-07] MEDS: QUEtiapine FUMARATE 25 MG TABLET PO SCH ×2 (08:22→15:08)
[2019-02-07] MEDS: CHOLECALCIFEROL (VITAMIN D3) 2,000 UNIT TABLET PO SCH (08:22)
[2019-02-07] MEDS: FAMOTIDINE 20 MG TABLET PO SCH ×2 (08:22→23:00)
[2019-02-07] MEDS: THIAMINE HCL 100 MG TABLET PO SCH (08:23)
[2019-02-07] MEDS: chlordiazePOXIDE HCL 25 MG CAPSULE PO SCH ×2 (09:00→15:00)
[2019-02-07 12:28] VITALS: BP_SYST 106
[2019-02-07 16:15] VITALS: BP_SYST 126
[2019-02-07] MEDS ORDERED: chlordiazePOXIDE HCL 10 MG CAPSULE PO ONE (16:30)
[2019-02-07 20:10] VITALS: BP_SYST 143
[2019-02-07] MEDS: chlordiazePOXIDE HCL 10 MG CAPSULE PO SCH (21:00)
[2019-02-07] MEDS: QUEtiapine FUMARATE 100 MG TABLET PO SCH (23:00)
[2019-02-08 03:46] VITALS: BP_SYST 144
[2019-02-08 08:10] VITALS: BP_SYST 156
[2019-02-08] MEDS: chlordiazePOXIDE HCL 10 MG CAPSULE PO SCH ×3 (08:49→21:41)
[2019-02-08] MEDS: QUEtiapine FUMARATE 25 MG TABLET PO SCH ×2 (08:49→15:29)
[2019-02-08] MEDS: FAMOTIDINE 20 MG TABLET PO SCH ×2 (08:49→21:41)
[2019-02-08] MEDS: POTASSIUM CHLORIDE 20 MEQ/PKT PACKET PO SCH (08:49)
[2019-02-08] MEDS: THIAMINE HCL 100 MG TABLET PO SCH (08:50)
[2019-02-08] MEDS: CHOLECALCIFEROL (VITAMIN D3) 2,000 UNIT TABLET PO SCH (08:50)
[2019-02-08] MEDS ORDERED: Thiamine Hcl PO (12:37)
[2019-02-08] MEDS ORDERED: LIB10 PO (12:37)
[2019-02-08] MEDS ORDERED: BISA-79 PO (12:37)
[2019-02-08] MEDS ORDERED: FAMO20TA8 PO (12:37)
[2019-02-08] MEDS ORDERED: POTASSIUM CHLOR 20 mEq/Packet PO (12:37)
[2019-02-08 12:40] VITALS: BP_SYST 110
[2019-02-08 16:35] VITALS: BP_SYST 118
[2019-02-08 20:00] VITALS: BP_SYST 118
[2019-02-08] MEDS: QUEtiapine FUMARATE 100 MG TABLET PO SCH (21:42)
[2019-02-09 01:03] VITALS: BP_SYST 121
[2019-02-09 05:00] VITALS: BP_SYST 153
[2019-02-09 08:10] VITALS: BP_SYST 143
[2019-02-09] MEDS: chlordiazePOXIDE HCL 10 MG CAPSULE PO SCH ×3 (08:54→20:26)
[2019-02-09] MEDS: THIAMINE HCL 100 MG TABLET PO SCH (08:55)
[2019-02-09] MEDS: POTASSIUM CHLORIDE 20 MEQ/PKT PACKET PO SCH (08:56)
[2019-02-09] MEDS: FAMOTIDINE 20 MG TABLET PO SCH ×2 (08:56→20:25)
[2019-02-09] MEDS: CHOLECALCIFEROL (VITAMIN D3) 2,000 UNIT TABLET PO SCH (08:57)
[2019-02-09] MEDS: QUEtiapine FUMARATE 25 MG TABLET PO SCH ×2 (09:00→16:07)
[2019-02-09 13:03] VITALS: BP_SYST 143
[2019-02-09 15:33] VITALS: BP_SYST 118
[2019-02-09] MEDS: QUEtiapine FUMARATE 100 MG TABLET PO SCH (20:26)
[2019-02-10 00:07] VITALS: BP_SYST 136
== END 2019-02-10 12:15 | disposition home health service (06) | DRG 432 ==
LOC: SED 16:12 → STU 18:35 → SIC 01-11 16:33 → STU 01-14 07:50 → SMU 01-14 13:25
PROVIDERS: ADMIT Internal Medicine; ATTEND Internal Medicine
DX: K70.40 Alcoholic hepatic failure without coma (principal); E43 Unspecified severe protein-calorie malnutrition; N39.0 Urinary tract infection, site not specified; E87.1 Hypo-osmolality and hyponatremia; K70.10 Alcoholic hepatitis without ascites; E78.00 Pure hypercholesterolemia, unspecified; E78.5 Hyperlipidemia, unspecified; F32.9 Major depressive disorder, single episode, unspecified; K74.60 Unspecified cirrhosis of liver; R74.0 Nonspecific elevation of levels of transaminase and lactic acid dehydrogenase [LDH]; E87.6 Hypokalemia; D63.8 Anemia in other chronic diseases classified elsewhere; G62.1 Alcoholic polyneuropathy; Z68.24 Body mass index [BMI] 24.0-24.9, adult; Z78.1 Physical restraint status; Z79.899 Other long term (current) drug therapy
CPT/HCPCS: 36415; 70450-TC; 71045; 76700-TC; 80048; 80053; 80061; 80074; 80076; 81000-TC; 82105; 82140-TC; 82272; 83036; 83540-TC; 83550-TC; 83605; 83690-TC; 83735-TC; 83880; 84100-TC; 85007; 85025; 85027; 85610-TC; 85730-TC; 87040-TC; 87045-TC; 87046; 87081; 87177; 89055; 93005; 93306; 94640; 94760; 96374; 97110-GP; 97116-GP; 97530-GP; 99285; G0378; J0295; J0696; J1630; J2060; J2405; J2765; J3411; J3475; J3490; J7030; J7042; J7050; J7060; J7120; J7512; J7620

== ENCOUNTER 2019-02-22 10:31 | Outpatient (CLI) | payer OTHER ==
[~2019-02-22 10:31] MED LIST: BISA-79 PO; FAMO20TA8 PO; LIB10 PO; LORA-259 PO; MULT-33 PO; NEPH PO; POTASSIUM CHLOR 20 mEq/Packet PO; SER25 PO; THIA100T73 PO; Thiamine Hcl PO; VITD2000 PO
[2019-02-22 11:10] LABS: BILIRUBIN,URINE NEGATIVE (NEGATIVE); BLOOD, URINE NEGATIVE (NEGATIVE); CLARITY/URINE CLEAR (CLEAR); COLOR,URINE YELLOW (YELLOW); GLUCOSE,URINE NEGATIVE (NEGATIVE); KETONES,URINE NEGATIVE (NEGATIVE); LEUKOCYTE ESTERASE ,URINE NEGATIVE (NEGATIVE); NITRITE, URINE NEGATIVE (NEGATIVE); PROTEIN URINE NEGATIVE (NEGATIVE); UROBILINOGEN,URINE 0.2 (0.2-1.0)
[2019-02-22 11:24] LABS: BASOPHILS # (AUTO) 0.1 K/uL (0.0-0.2); EOSINOPHILS # (AUTO) 0.1 K/uL (0.0-0.4); EOSINOPHILS % (AUTO) 1.8 % (0.0-4.0); HEMOGLOBIN 11.8 g/dL (14.0-18.0); LYMPHOCYTES # (AUTO) 1.2 K/uL (1.0-5.5); LYMPHOCYTES % (AUTO) 23.7 % (20.5-51.5); MEAN CORPUSCULAR HEMOGLOBIN 34 pg (27-31); MEAN CORPUSCULAR HGB CONC 34 % (32-36); MEAN CORPUSCULAR VOLUME 99 fL (79.0-98.0); MONOCYTES # (AUTO) 0.6 K/uL (0.0-1.0); MONOCYTES % (AUTO) 10.8 % (1.7-9.3); NEUTROPHILS # (AUTO) 3.3 K/uL (1.8-7.7); NEUTROPHILS % (AUTO) 62.7 % (40.0-70.0); PLATELET COUNT (AUTO) 294 K/uL (130-430); RED BLOOD CELL COUNT(AUTO) 3.53 MIL/uL (4.2-6.2); RED CELL DISTRIBUTION WIDTH 13.7 % (9.0-15.0); WHITE BLOOD COUNT (AUTO) 5.3 K/uL (4.8-10.8)
[2019-02-22 11:42] LABS: CALCIUM 8.9 mg/dL (8.4-11.0); CREATININE 0.92 mg/dL (0.55-1.30); FREE T4 (FREE THYROXINE) 0.7 ng/dl (0.8-1.5); POTASSIUM 4.8 mmol/L (3.5-5.1); THYROID STIMULATING HORMONE 4.62 uIu/mL (0.36-3.74)
== END 2019-02-22 20:51 | disposition home or self-care (01) ==
LOC: SLB 10:31
PROVIDERS: ATTEND Internal Medicine
DX: K70.30 Alcoholic cirrhosis of liver without ascites (principal)
CPT/HCPCS: 36415; 80053; 81003; 82105; 84439; 84443-TC; 85025